=== PATIENT | male | born 2000 | race Two or more races ===

== ENCOUNTER 2020-09-08 02:28 | Emergency (ER) | payer OTHER ==
[~2020-09-08] VITALS: Ht 175.3 cm; Wt 54.4 kg
[2020-09-08] MEDS ORDERED: KETO10TA2 PO (04:05)
[2020-09-08] MEDS ORDERED: SKELAXIN800 MG PO (04:05)
[2020-10-24] MEDS ORDERED: ACETAMINOPHEN500 M2 (21:18)
== END 2020-09-08 05:48 | disposition home or self-care (01) ==
LOC: ER 02:28
DX: M62.830 Muscle spasm of back (principal)

== ENCOUNTER 2023-02-27 22:58 | Emergency (ER) | payer OTHER ==
[~2023-02-27] VITALS: Ht 170.2 cm; Wt 56.7 kg
[~2023-02-27 22:58] MED LIST: ACETAMINOPHEN500 M2; KETO10TA2 PO; SKELAXIN800 MG PO
== END 2023-02-28 03:23 | disposition home or self-care (01) ==
LOC: ER 22:58
DX: U07.1 COVID-19 (principal); R53.81 Other malaise; J06.9 Acute upper respiratory infection, unspecified

== ENCOUNTER 2023-03-30 16:44 | Emergency (ER) | payer OTHER ==
[~2023-03-30] VITALS: Ht 170.2 cm; Wt 56.7 kg
== END 2023-03-30 18:37 | disposition home or self-care (01) ==
LOC: ER 16:44
DX: S92.501A Displaced unspecified fracture of right lesser toe(s), initial encounter for closed fracture (principal); S92.521A Displaced fracture of middle phalanx of right lesser toe(s), initial encounter for closed fracture; X58.XXXA Exposure to other specified factors, initial encounter; Y93.89 Activity, other specified; Y92.69 Other specified industrial and construction area as the place of occurrence of the external cause; Y99.8 Other external cause status